=== PATIENT | male | born 1995 | race African-American/Black ===

== ENCOUNTER 2024-11-14 08:31 | Outpatient (CLI) | payer BC, SELFPAY | END 2024-11-14 08:32 | disposition home or self-care (01) | PROVIDERS: PCP Registered Nurse; Visit Provider Registered Nurse | DX: Z13.228 Encounter for screening for other metabolic disorders (principal); Z13.220 Encounter for screening for lipoid disorders | CPT/HCPCS: 80048; 80061 ==